=== PATIENT | male | born 1980 | race Native Hawaiian/Other Pacific Islander ===

== ENCOUNTER 2018-09-09 19:22 | Emergency (ER) | payer OTHER ==
[~2018-09-09] VITALS: Ht 185.4 cm; Wt 61.3 kg
[2018-09-09 19:47] VITALS: BP 115/79; TEMP 97.2
[2018-09-09 20:53] LABS: PLATELET COUNT 279 K/uL (142-355)
[2018-09-09 21:07] LABS: POTASSIUM 3.4 mmol/L (3.6-5.2)
== END 2018-09-10 01:00 | disposition home or self-care (01) ==
LOC: ED 19:22
PROVIDERS: Family Medicine
DX: E87.1 Hypo-osmolality and hyponatremia (principal); E87.6 Hypokalemia; E86.0 Dehydration
CPT/HCPCS: 36415; 80053; 85027; 99283

== ENCOUNTER 2018-09-10 21:06 | Emergency (ER) | payer OTHER ==
[~2018-09-10] VITALS: Ht 185.4 cm; Wt 61.2 kg
[2018-09-12 19:47] VITALS: BP 112/70; TEMP 97.9
== END 2018-09-12 19:47 | disposition other institution (70) ==
LOC: ED 21:06
DX: F19.10 Other psychoactive substance abuse, uncomplicated (principal)
CPT/HCPCS: 36415; 80307; 80320; 80329; 81000; 99285